=== PATIENT | female | born 1990 | race African-American/Black ===

== ENCOUNTER 2019-12-24 01:25 | Emergency (ER) | payer MEDICAID, OTHER ==
[~2019-12-24] VITALS: Ht 172.7 cm; Wt 136.1 kg
[2019-12-24 02:11] VITALS: BP 136/84
[2019-12-24] MEDS ORDERED: LIDOCAINE 1% HCL (LOCAL ANESTH.) INJ 20ML MDV ID ONE (04:00)
[2019-12-24] MEDS ORDERED: NEOMYCIN-BACITRACIN-POLYM UNITDOSE PKG TOP OINT TOP ONE (04:00)
== END 2019-12-24 04:41 | disposition home or self-care (01) ==
LOC: EDBD 01:25 → ER 01:31
DX: S81.821A Laceration with foreign body, right lower leg, initial encounter (principal); W25.XXXA Contact with sharp glass, initial encounter; Y93.89 Activity, other specified; Y92.89 Other specified places as the place of occurrence of the external cause; Y99.8 Other external cause status
CPT/HCPCS: 12031; 73590; 73620; 99284; J2001